=== PATIENT | female | born 1980 | race Caucasian/White ===

== ENCOUNTER 2018-03-16 11:06 | Emergency (ER) | payer OTHER ==
[2018-03-16 11:16] VITALS: BMI 19.6
[2018-03-16 11:19] VITALS: RESP 18; TEMP 98.3; O2SAT 100
[2018-03-16] MEDS ORDERED: Albuterol-Ipratrop 3 mg / 0.5 (3 ml) UD INH STA (11:44)
[2018-03-16] MEDS ORDERED: Sodium Chloride 0.9% 1,000 ML IV STA (11:44)
[2018-03-16] MEDS ORDERED: Albuterol-Ipratrop 3 mg / 0.5 (3 ml) UD ONE (11:49)
--- NOTE | 2018-03-16 11:54 | ED PDOC ---
HPI: General Adult Time Seen by Provider: 03/16/18 11:20 Chief Complaint (Nursing): Shortness Of Breath History Per: Patient Additional Complaint(s): Pt. states for the past 3 days she's had nasal congestion and cough. Yesterday she developed mid-sternal chest pain radiating to her back. Also reports at 0000 she developed crampy abdominal pain associated with 5 episodes of watery diarrhea and noticing blood but only after wiping. Reports stool itself is non- bloody and is "light brown" in color. Denies hx of DVT or PE, hemoptysis, sick contacts, recent travel, fever, vomiting, recent NSAID use, anticoagulant use, recent prolonged immobilization of limb. Past Medical History Reviewed: Historical Data, Nursing Documentation, Vital Signs Vital Signs: Last Vital Signs Temp 98.3 F 03/16/18 11:17 Pulse 56 L 03/16/18 12:00 Resp 18 03/16/18 11:44 BP 111/66 03/16/18 11:29 Pulse Ox 100 03/16/18 12:00 - Medical History PMH: Asthma - Surgical History Surgical History: (x1) - Family History Family History: States: No Known Family Hx - Immunization History Hx Tetanus Toxoid Vaccination: No Hx Influenza Vaccination: No Hx Pneumococcal Vaccination: No - Home Medications Home Medications: Ambulatory Orders Medication Instructions Recorded Acetaminophen [Tylenol] 2 tab PO ONCE 11/10/15 Acetaminophen [Tylenol] 650 mg PO Q4 #30 tab 11/10/15 Albuterol HFA [Ventolin HFA 90 2 puff NEB Q6 PRN 11/10/15 mcg/actuation (8 g)] Ondansetron ODT [Zofran ODT] 4 mg PO Q8 #12 odt 11/10/15 Nitrofurantoin Macrocrystals 100 mg PO BID #10 cap 03/22/16 [Macrobid] Dicyclomine [Bentyl] 20 mg PO TID PRN #10 tab 03/16/18 Famotidine [Pepcid] 20 mg PO DAILY PRN #10 tab 03/16/18 Ondansetron ODT [Zofran ODT] 4 mg PO TID #10 odt 03/16/18 - Allergies Allergies/Adverse Reactions: Allergies Allergy/AdvReac Type Severity Reaction Status Date / Time No Known Allergies Allergy Verified 03/22/16 14:51 Review of Systems ROS Statement: Except As Marked, All Systems Reviewed And Found Negative ENT: Positive for: Nose Congestion Respiratory: Positive for: Cough Gastrointestinal: Positive for: Nausea, Abdominal Pain, Diarrhea Musculoskeletal: Positive for: Back Pain Physical Exam - Reviewed Nursing Documentation Reviewed: Yes Vital Signs Reviewed: Yes - Physical Exam Appears: Positive for: Well, Non-toxic, No Acute Distress Head Exam: Positive for: ATRAUMATIC, NORMAL INSPECTION, NORMOCEPHALIC Skin: Positive for: Normal Color, Warm. Negative for: Rash Eye Exam: Positive for: EOMI, Normal appearance, PERRL ENT: Positive for: Normal ENT Inspection Neck: Positive for: Normal, Painless ROM Cardiovascular/Chest: Positive for: Regular Rate, Rhythm Respiratory: Positive for: Wheezing (minimal b/l expiratory wheezing). Negative for: Accessory Muscle Use, Crackles, Rales, Rhonchi, Respiratory Distress Gastrointestinal/Abdominal: Positive for: Normal Exam, Soft. Negative for: Tenderness (to deep palpation) Back: Positive for: Normal Inspection. Negative for: L CVA Tenderness, R CVA Tenderness Extremity: Positive for: Normal ROM Neurologic/Psych: Positive for: Alert, Oriented. Negative for: Aphasia, Facial Droop - Laboratory Results Result Diagrams: 03/16/18 12:05 03/16/18 12:05 - ECG ECG: Positive for: Interpreted By Me ECG Rhythm: Positive for: Sinus Bradycardia. Negative for: ST/T Changes Rate: 56 O2 Sat by Pulse Oximetry: 100 - Radiology X-Ray: Interpreted by Me (CXR) X-Ray Interpretation: No Acute Disease - Progress ED Course And Treament: Labs, duoneb x 1, IV NS bolus x 1 ordered. 1300 On re-evaluation, pt. in no distress. States she is feeling better. Lungs clear b/l. Abd soft and non-tender to deep palpation. Disposition - Clinical Impression Clinical Impression: Bronchospasm, Diarrhea - Patient ED Disposition Is Patient to be Admitted: No - Disposition Referrals: Noemi Ramos [Outside] Disposition: Routine/Home Disposition Time: 13:05 Condition: IMPROVED Additional Instructions: Follow up with PMD for further evaluation. Return to ED immediately if symptoms worsen. Prescriptions: Dicyclomine [Bentyl] 20 mg PO TID PRN #10 tab PRN Reason: abdominal pain Famotidine [Pepcid] 20 mg PO DAILY PRN #10 tab PRN Reason: Dyspepsia Ondansetron ODT [Zofran ODT] 4 mg PO TID #10 odt Instructions: Diarrhea in Adolescents and Adults, Asthma, Adult (DC) Forms: [facility] [facility] (Surinamese), [facility] ED School/Work Excuse Print Language: EGYPTIAN
[2018-03-16 12:17] LABS: BASO # 0.1 K/uL (0.0-0.2); BASO % 1.1 % (0.0-2.0); EOS # 0.5 K/uL (0.0-0.7); EOS % 9.7 % (0.0-4.0); HEMOGLOBIN 13.5 g/dL (12.0-16.0); LYMPH # 2.1 K/uL (1.0-4.3); LYMPH % 37.8 % (20.0-40.0); MEAN CELL VOLUME 91.1 fl (81.0-99.0); MEAN CORPUSCULAR HEMOGLOBIN 30.6 pg (27.0-31.0); MEAN CORPUSCULAR HGB CONC 33.5 g/dL (33.0-37.0); MEAN PLATELET VOLUME 7.4 fl (7.2-11.7); MONO # 0.3 K/uL (0.0-0.8); MONO % 5.7 % (0.0-10.0); NEUT # 2.5 K/uL (1.8-7.0); NEUT % 45.7 % (50.0-75.0); RBC 4.42 Mil/uL (3.80-5.20); RED CELL DISTRIBUTION WIDTH 12.3 % (11.5-14.5); WHITE BLOOD COUNT 5.6 K/uL (4.8-10.8)
[2018-03-16 12:30] LABS: SQUAMOUS EPITHIAL 7 /hpf (0-5); URINE BACTERIA RARE (<OCC); URINE BILIRUBIN NEGATIVE (NEGATIVE); URINE BLOOD MODERATE (NEGATIVE); URINE CLARITY SLIGHTY-CLOUDY (Clear); URINE COLOR YELLOW (YELLOW); URINE GLUCOSE (UA) NEG (Normal); URINE LEUKOCYTE ESTERASE NEG Leu/uL (Negative); URINE PROTEIN 30 mg/dL (NEGATIVE); URINE UROBILINOGEN 0.2-1.0 mg/dL (0.2-1.0)
[2018-03-16 12:33] LABS: ALB/GLOB RATIO 1.1 (1.0-2.1); ALBUMIN 4.1 g/dL (3.5-5.0); ALT/SGPT 27 U/L (9-52); AST/SGOT 28 U/L (14-36); BLOOD UREA NITROGEN 13 mg/dl (7-17); CALCIUM 9.1 mg/dL (8.4-10.2); GFR AFRICAN-AMERICAN > 60; GFR NON-AFRICAN AMERICAN > 60; LIPASE 42 U/L (23-300)
--- NOTE | 2018-03-16 12:48 | RAD ---
HISTORY: Shortness of breath. COMPARISON: No prior. TECHNIQUE: Chest PA and lateral FINDINGS: LUNGS: No active pulmonary disease. PLEURA: No significant pleural effusion identified. No pneumothorax apparent. CARDIOVASCULAR: Normal. OSSEOUS STRUCTURES: No significant abnormalities. Mild thoracolumbar scoliosis VISUALIZED UPPER ABDOMEN: Normal. OTHER FINDINGS: None. IMPRESSION: No active disease.
[2018-03-16 13:31] VITALS: BP 112/51; PULSE 55
--- NOTE | 2018-03-19 11:41 | CARD ---
APPROVED REPORT EKG Measurement Heart [id number] <Conclusion> Sinus bradycardia with sinus arrhythmia Otherwise normal ECG
== END 2018-03-16 13:30 | disposition home or self-care (01) ==
LOC: H.ER 11:06
DX: R19.7 Diarrhea, unspecified (principal); J98.01 Acute bronchospasm; J45.909 Unspecified asthma, uncomplicated
CPT/HCPCS: 71046; 80053; 81003; 81025; 83690; 84484; 85025; 85378; 96360; 99285; J7030

== ENCOUNTER 2018-04-08 16:04 | Emergency (ER) | payer OTHER ==
[2018-04-08 16:04] VITALS: BMI 19.6
[2018-04-08 16:14] VITALS: RESP 16
--- NOTE | 2018-04-08 16:53 | ED PDOC ---
HPI: Chest Pain Time Seen by Provider: 04/08/18 16:18 Chief Complaint (Nursing): Chest Pain Chief Complaint (Provider): Chest Pain History Per: Patient History/Exam Limitations: no limitations Onset/Duration Of Symptoms: Days Current Symptoms Are (Timing): Still Present Additional Complaint(s): 37 y/o female with a PMHx of asthma presents to the ED complaining of substernal chest pain starting yesterday while at rest. Patient reports pain is non-radiating but worsens with touch and deep breaths. Patient states pain is similar to previous episode of chest pain that she presented with two weeks ago. Work up at that time was negative for any acute cardiac conditions. Patient followed up with PMD who said "something was wrong with her ribs". Patient states pain is also associated with shortness of breath that resolved with Ventolin. Denies pain medication, cough, fever and trauma. PMD: [facility] in [place], [place] Past Medical History Reviewed: Historical Data, Nursing Documentation, Vital Signs Vital Signs: Last Vital Signs Temp 98 F 04/08/18 18:20 Pulse 61 04/08/18 18:20 Resp 16 04/08/18 18:20 BP 121/70 04/08/18 18:20 Pulse Ox 99 04/08/18 18:20 - Medical History PMH: Asthma - Surgical History Surgical History: (x1) - Family History Family History: States: No Known Family Hx - Social History Current smoker - smoking cessation education provided: No - Immunization History Hx Tetanus Toxoid Vaccination: No Hx Influenza Vaccination: No Hx Pneumococcal Vaccination: No - Home Medications Home Medications: Ambulatory Orders Medication Instructions Recorded Acetaminophen [Tylenol] 2 tab PO ONCE 11/10/15 Acetaminophen [Tylenol] 650 mg PO Q4 #30 tab 11/10/15 Albuterol HFA [Ventolin HFA 90 2 puff NEB Q6 PRN 11/10/15 mcg/actuation (8 g)] Ondansetron ODT [Zofran ODT] 4 mg PO Q8 #12 odt 11/10/15 Nitrofurantoin Macrocrystals 100 mg PO BID #10 cap 03/22/16 [Macrobid] Dicyclomine [Bentyl] 20 mg PO TID PRN #10 tab 03/16/18 Famotidine [Pepcid] 20 mg PO DAILY PRN #10 tab 03/16/18 Ondansetron ODT [Zofran ODT] 4 mg PO TID #10 odt 03/16/18 Famotidine [Pepcid] 40 mg PO DAILY PRN #30 tab 04/08/18 Ibuprofen [Motrin Tab] 600 mg PO Q8 PRN #30 tab 04/08/18 - Allergies Allergies/Adverse Reactions: Allergies Allergy/AdvReac Type Severity Reaction Status Date / Time No Known Allergies Allergy Verified 03/22/16 14:51 Review of Systems ROS Statement: Except As Marked, All Systems Reviewed And Found Negative (as per HPI) Constitutional: Negative for: Fever Cardiovascular: Positive for: Chest Pain Respiratory: Positive for: Shortness of Breath. Negative for: Cough Physical Exam - Reviewed Nursing Documentation Reviewed: Yes Vital Signs Reviewed: Yes - Physical Exam Appears: Positive for: Well, No Acute Distress Head Exam: Positive for: ATRAUMATIC, NORMOCEPHALIC Skin: Positive for: Warm, Dry Eye Exam: Positive for: EOMI, PERRL Neck: Positive for: Painless ROM, Supple Cardiovascular/Chest: Positive for: Regular Rate, Rhythm, Other (no perfidious, no step-off). Negative for: Chest Non Tender (Reproducable mid-sternal chest tenderness to palpation. ) Respiratory: Positive for: Normal Breath Sounds (clear to auscultation bilaterally). Negative for: Accessory Muscle Use, Wheezing, Respiratory Distress Gastrointestinal/Abdominal: Positive for: Soft. Negative for: Tenderness Back: Positive for: Normal Inspection. Negative for: Decreased ROM Extremity: Positive for: Normal ROM. Negative for: Pedal Edema, Calf Tenderness , Deformity Lymphatic: Negative for: Adenopathy Neurologic/Psych: Positive for: Alert. Negative for: Motor/Sensory Deficits - Laboratory Results Result Diagrams: 04/08/18 16:15 04/08/18 16:15 - ECG ECG Rhythm: Positive for: Normal QRS, Normal ST Segment, Sinus Bradycardia O2 Sat by Pulse Oximetry: 100 (RA) Pulse Ox Interpretation: Normal Medical Decision Making Medical Decision Making: Time: 1652 Impression: Chest wall pain Differentials include but not limited to reflux and costochondritis Plan: -- CMP -- Free T4 -- Magnesium -- Phosphorus -- T3 -- Thyroid Stimulation -- ED Urine -- ED Urine Dipstick -- CBC with differentials -- Motrin Tab 600 mg PO -- Pepcid 20 mg PO -- Toradol 15 mg IVP -- IV Insertion Labs unremarkable. Pt feeling better Stable for dc. Scribe Attestation: Documented by Pete Ball acting as a scribe for Dr. Serene Vanegas. Provider Scribe Attestation: All medical record entries made by the Scribe were at my direction and personally dictated by me. I have reviewed the chart and agree that the record accurately reflects my personal performance of the history, physical exam, medical decision making, and the department course for this patient. I have also personally directed, reviewed, and agree with the discharge instructions and disposition. Disposition - Clinical Impression Clinical Impression: Chest pain Counseled Patient/Family Regarding: Studies Performed, Diagnosis, Need For Followup, Rx Given - Disposition Referrals: [facility] [Provider Group] - 04/09/18 Disposition: Routine/Home Disposition Time: 18:12 Condition: IMPROVED Additional Instructions: VISITA PIZARRO DOCTOR EN 1-2 [facility] A POLLO CRUZ Prescriptions: Famotidine [Pepcid] 40 mg PO DAILY PRN #30 tab PRN Reason: reflux Ibuprofen [Motrin Tab] 600 mg PO Q8 PRN #30 tab PRN Reason: Pain, Moderate (4-7) Instructions: Costochondritis (DC) Forms: [facility] (Cape Verdean)
[2018-04-08 17:23] LABS: BASO # 0.1 K/uL (0.0-0.2); EOS # 0.6 K/uL (0.0-0.7); EOS % 9.8 % (0.0-4.0); HEMOGLOBIN 13.2 g/dL (12.0-16.0); LYMPH # 1.9 K/uL (1.0-4.3); LYMPH % 30.6 % (20.0-40.0); MEAN CELL VOLUME 91.4 fl (81.0-99.0); MEAN CORPUSCULAR HEMOGLOBIN 30.6 pg (27.0-31.0); MEAN CORPUSCULAR HGB CONC 33.5 g/dL (33.0-37.0); MEAN PLATELET VOLUME 7.5 fl (7.2-11.7); MONO # 0.2 K/uL (0.0-0.8); MONO % 3.8 % (0.0-10.0); NEUT # 3.4 K/uL (1.8-7.0); NEUT % 54.8 % (50.0-75.0); RBC 4.3 Mil/uL (3.80-5.20); RED CELL DISTRIBUTION WIDTH 12.2 % (11.5-14.5); WHITE BLOOD COUNT 6.2 K/uL (4.8-10.8)
[2018-04-08 17:37] LABS: ALB/GLOB RATIO 1.4 (1.0-2.1); ALBUMIN 4.2 g/dL (3.5-5.0); ALT/SGPT 24 U/L (9-52); AST/SGOT 27 U/L (14-36); BLOOD UREA NITROGEN 12 mg/dl (7-17); CALCIUM 9.2 mg/dL (8.4-10.2); GFR AFRICAN-AMERICAN > 60; GFR NON-AFRICAN AMERICAN > 60
[2018-04-08 18:08] LABS: T3 1.22 nmol/L (1.49-2.60)
[2018-04-08 18:21] VITALS: BP 121/70; PULSE 61; TEMP 98
[2018-04-08 22:58] VITALS: O2SAT 100
== END 2018-04-08 18:21 | disposition home or self-care (01) ==
LOC: H.ER 16:04
DX: R07.89 Other chest pain (principal)
CPT/HCPCS: 80053; 83735; 84100; 84443; 84480; 85025; 96374; 99284; J1885

== ENCOUNTER 2018-04-16 20:33 | Emergency (ER) | payer OTHER ==
[2018-04-16 20:33] VITALS: BMI 19.6
[2018-04-16 20:47] VITALS: RESP 18; O2SAT 100
--- NOTE | 2018-04-16 22:14 | ED PDOC ---
HPI: Chest Pain Time Seen by Provider: 04/16/18 20:45 Chief Complaint (Nursing): Chest Pain Chief Complaint (Provider): Chest Pain History Per: Patient History/Exam Limitations: no limitations Onset/Duration Of Symptoms: Days (x 2 weeks ) Current Symptoms Are (Timing): Still Present Quality: "Pain" Additional Complaint(s): 37 year old female with a history of asthma presents to the ED with constant chest pain for the last 2 weeks. Patient reports pain is non-radiating. Patient states pain is similar to previous episode of chest pain that she presented with two weeks ago. Patient was seen here on 04/08/2018 with very similar symptoms, diagnosed with gastritis and discharged with prescriptions of Pepcid and Motrin. She reports burning pain in her stomach after she eats. Patient states she tried to see her PMD today, but was not able to due to inabiltiy to get appt. Denies fever, shortness of breath and other medical complaints. PMD: [facility] Past Medical History Vital Signs: Last Vital Signs Temp 98.5 F 04/17/18 00:08 Pulse 64 04/17/18 00:41 Resp 18 04/17/18 00:08 BP 133/86 04/17/18 00:08 Pulse Ox 100 04/17/18 00:41 - Medical History PMH: Asthma - Surgical History Surgical History: (x1) - Family History Family History: States: Unknown Family Hx - Social History Current smoker - smoking cessation education provided: No Alcohol: None Drugs: Denies - Immunization History Hx Tetanus Toxoid Vaccination: No Hx Influenza Vaccination: No Hx Pneumococcal Vaccination: No - Home Medications Home Medications: Ambulatory Orders Medication Instructions Recorded Acetaminophen [Tylenol] 2 tab PO ONCE 11/10/15 Acetaminophen [Tylenol] 650 mg PO Q4 #30 tab 11/10/15 Albuterol HFA [Ventolin HFA 90 2 puff NEB Q6 PRN 11/10/15 mcg/actuation (8 g)] Ondansetron ODT [Zofran ODT] 4 mg PO Q8 #12 odt 11/10/15 Nitrofurantoin Macrocrystals 100 mg PO BID #10 cap 03/22/16 [Macrobid] Dicyclomine [Bentyl] 20 mg PO TID PRN #10 tab 03/16/18 Famotidine [Pepcid] 20 mg PO DAILY PRN #10 tab 03/16/18 Ondansetron ODT [Zofran ODT] 4 mg PO TID #10 odt 03/16/18 Famotidine [Pepcid] 40 mg PO DAILY PRN #30 tab 04/08/18 Ibuprofen [Motrin Tab] 600 mg PO Q8 PRN #30 tab 04/08/18 - Allergies Allergies/Adverse Reactions: Allergies Allergy/AdvReac Type Severity Reaction Status Date / Time No Known Allergies Allergy Verified 04/16/18 20:45 YAHAIRA Risk Score for UA/NSTEMI - YAHAIRA Risk Score Age > 64: NO 3 or more CAD Risk Factors: NO Known CAD (Stenosis greater than 50%): NO Aspirin use in past 7 days: NO Severe Angina: NO EKG ST changes greater than 0.5mm: NO Positive Cardiac Marker: NO YAHAIRA Score: 0 Risk %: 5% Curb-65 Severity Score - CURB-65 Severity Score Confusion: No Bun >19mg/dl (>7mmol/L): No Respiratory Rate greater than/equal to 30: No Systolic BP <90 or Diastolic BP less than/equal 60mmHg: No Age >64: No Curb-65 Score: 0 Percentage 30-day mortality: 0.6% Wells Criteria for PE - Wells Criteria for Pulmonary Embolism Clinical Signs and Symptoms of DVT: No P.E is #1 Diagnosis, or Equally Likely: No Heart Rate >100: No Immobilization at least 3 days;Surgery previous 4 weeks: No Previous, objectively diagnosed PE or DVT: No Hemoptysis: No Malignancy w/treatment within 6 months, or palliative: No Total Score: 0 Review of Systems ROS Statement: Except As Marked, All Systems Reviewed And Found Negative Constitutional: Negative for: Fever Cardiovascular: Positive for: Chest Pain Respiratory: Negative for: Shortness of Breath Gastrointestinal: Negative for: Nausea Physical Exam - Reviewed Nursing Documentation Reviewed: Yes Vital Signs Reviewed: Yes - Physical Exam Appears: Positive for: Non-toxic, No Acute Distress Head Exam: Positive for: ATRAUMATIC, NORMAL INSPECTION, NORMOCEPHALIC Skin: Positive for: Normal Color, Warm, DRY Eye Exam: Positive for: EOMI, Normal appearance, PERRL ENT: Positive for: Normal ENT Inspection Neck: Positive for: Normal, Painless ROM, Supple Cardiovascular/Chest: Positive for: Regular Rate, Rhythm. Negative for: Murmur Respiratory: Positive for: Normal Breath Sounds. Negative for: Respiratory Distress Gastrointestinal/Abdominal: Positive for: Normal Exam, Soft. Negative for: Tenderness Extremity: Positive for: Normal ROM. Negative for: Deformity Neurologic/Psych: Positive for: Alert, sealer dry cell II-XII, Oriented (x 3). Negative for : Motor/Sensory Deficits - Laboratory Results Result Diagrams: 04/16/18 22:30 04/16/18 22:30 - ECG ECG: Positive for: Interpreted By Me, Viewed By Me ECG Rhythm: Positive for: Normal ST Segment, Sinus Rhythm (normal). Negative for: ST/T Changes Rate: 64 O2 Sat by Pulse Oximetry: 100 (RA) Pulse Ox Interpretation: Normal Medical Decision Making Medical Decision Making: Time: 21:47 Impression:history of gastritis here with symptoms consistent with gastritis rule out pneimonia, electrolyte abnormality Initial Plan: --Beta quant --CMP --troponin I --lipase --CBC --CXR 23:30 labs are normal and reveal no significant abnormalities. Patient is not . 00:19 Patient reports feeling better. CXR shows no active disease. Patient is stable for discharge. ---- Scribe Attestation: Documented by Katy Ladd, acting as a scribe for Jovanna Alba MD Provider Scribe Attestation: All medical record entries made by the Scribe were at my direction and personally dictated by me. I have reviewed the chart and agree that the record accurately reflects my personal performance of the history, physical exam, medical decision making, and the department course for this patient. I have also personally directed, reviewed, and agree with the discharge instructions and disposition. Disposition - Clinical Impression Clinical Impression: Gastritis - Patient ED Disposition Is Patient to be Admitted: No Counseled Patient/Family Regarding: Studies Performed, Diagnosis, Need For Followup, Rx Given - Disposition Disposition: Routine/Home Disposition Time: 00:00 Condition: IMPROVED Additional Instructions: TRISHA ESPINOSA, thank you for letting us take care of you today. Your provider was Jovanna Alba MD and you were treated for CHEST PAIN. The emergency medical care you received today was directed at your acute symptoms. If you were prescribed any medication, please fill it and take as directed. It may take several days for your symptoms to resolve. Return to the Emergency Department if your symptoms worsen, do not improve, or if you have any other problems. Please contact your doctor or call one of the physicians/clinics you have been referred to that are listed on the Patient Visit Information form that is included in your discharge packet. Bring any paperwork you were given at discharge with you along with any medications you are taking to your follow up visit. Our treatment cannot replace ongoing medical care by a primary care provider outside of the emergency department. Thank you for allowing the [facility] team to be part of your care today. If you had an X-Ray or CT scan: A Radiologist will review the ED reading if any change in treatment is needed we will contact you. If you had a blood, urine, or wound culture: It will take several days for the results, if any change in treatment is needed we will contact you. If you had an STI test: It will take 48 hours for the results. Please call after 1 week if you have not heard back. Instructions: Gastritis (DC) Forms: [employer] (Turkish)
[2018-04-16 22:24] VITALS: PULSE 64
[2018-04-16 22:38] LABS: BASO # 0.1 K/uL (0.0-0.2); HEMOGLOBIN 12.5 g/dL (12.0-16.0); MONO # 0.3 K/uL (0.0-0.8); MONO % 4.8 % (0.0-10.0)
[2018-04-16 22:40] LABS: EOS # 0.3 K/uL (0.0-0.7); LYMPH # 2.5 K/uL (1.0-4.3); LYMPH % 35.3 % (20.0-40.0); MEAN CORPUSCULAR HGB CONC 34.1 g/dL (33.0-37.0); MEAN PLATELET VOLUME 7.6 fl (7.2-11.7); NEUT # 3.8 K/uL (1.8-7.0); NEUT % 53.9 % (50.0-75.0); RBC 4.02 Mil/uL (3.80-5.20); RED CELL DISTRIBUTION WIDTH 12.1 % (11.5-14.5)
[2018-04-16 23:10] LABS: ALB/GLOB RATIO 1.3 (1.0-2.1); ALBUMIN 3.8 g/dL (3.5-5.0); ALT/SGPT 23 U/L (9-52); AST/SGOT 27 U/L (14-36); BLOOD UREA NITROGEN 11 mg/dl (7-17); CALCIUM 8.8 mg/dL (8.4-10.2); GFR AFRICAN-AMERICAN > 60; GFR NON-AFRICAN AMERICAN > 60; LIPASE 71 U/L (23-300)
[2018-04-17 01:20] VITALS: BP 133/86; TEMP 98.5
--- NOTE | 2018-04-17 10:41 | RAD ---
Date of service: 04/17/2018 HISTORY: chest pain COMPARISON: 03/16/2018 TECHNIQUE: Chest PA and lateral FINDINGS: LUNGS: No active pulmonary disease. PLEURA: No significant pleural effusion identified. No pneumothorax apparent. CARDIOVASCULAR: Normal. OSSEOUS STRUCTURES: No significant abnormalities. VISUALIZED UPPER ABDOMEN: Normal. OTHER FINDINGS: None. IMPRESSION: No active disease.
== END 2018-04-17 00:10 | disposition home or self-care (01) ==
LOC: H.ER 20:33
DX: K29.70 Gastritis, unspecified, without bleeding (principal)